=== PATIENT | female | born 1980 ===

== ENCOUNTER 2023-04-14 08:10 | Outpatient (CLI) | payer OTHER | END 2023-04-14 08:22 | disposition home or self-care (01) | LOC: MAMO-SONO 08:10 | PROVIDERS: ATTEND Obstetrics & Gynecology Gynecology | DX: N60.11 Diffuse cystic mastopathy of right breast (principal); N60.12 Diffuse cystic mastopathy of left breast; Z12.31 Encounter for screening mammogram for malignant neoplasm of breast ==